=== PATIENT | female | born 1990 | race Caucasian/White ===

== ENCOUNTER 2025-09-01 08:28 | Outpatient (REF) | payer MEDICAID, SELFPAY ==
--- OUTSIDE RECORDS SUMMARY | 2025-08-30 14:00 | XMS_ITS | Encounter Summary ---
Author Organization [employer] Address [address] [place] [address] [address], [place] [address] Care Team Providers Care Industrial Engineering Technologist Name Role Phone Dejan Lopes CNP Primary Care Provider [phone] Reason for Referral * Imaging (Routine) - Closed Specialty Diagnoses / Procedures Referred By Jeffrey burris Referred To Contact Radiology Diagnoses Encounter for screening mammogram for breast cancer Procedures BI Mammogram Screening Tomosynthesis Bilateral Dejan Lopes CNP [address] [place] [address] Phone: tel: fax: [address] Phone: tel: fax: Referral ID Status Reason Start Date Expiration Date Visits Re quested Visits Authorized [id number] Closed 08/30/2025 08/30/2026 1 1 * Consultation (Routine) - Authorized Specialty Diagnoses / Procedures Referred By Jeffrey burris Referred To Contact Hand Surgery Diagnoses Chronic hand pain, right Dejan Lopes CNP [address] [place] [address] Phone: tel: fax: [facility] [address] [place] [address] Phone: tel: Referral ID Status Reason Start Date Expiration Date Visits Requested Visits Authorized [id number] Authorized Specialty Services Required 08/30/2026 1 1 * Consultation (Routine) - Closed Specialty Diagnoses / Procedures Referred By Jeffrey burris Referred To Contact Physical Therapy Diagnoses Chronic pain of both knees Dejan Lopes CNP [address] [place] [address] Phone: tel: fax: [facility] [address] [place], [place] Phone: tel: fax: Referral ID Status Reason Start Date Expiration Date V isits Requested Visits Authorized [id number] Closed Specialty Services Required 08/30/2025 08/30/2026 1 1 Encounter Details Date Type Department Care Team ([facility] st Contact Info) Description 08/30/2025 2:00 PM EST Office Visit [facility] [address] [place] [address] Dejan Lopes CNP [address] [place] [address] Encounter to establish care (Primary Dx); Chronic pain of both knees; Chronic hand pain, right; Encounter for screening mammogram for breast cancer Social History Tobacco Use Types Packs/Day Years Used Date Smoking Tobacco: Never Passive Smoke Exposure: Never Smokeless Tobacco: Never Alcohol Use Standard Drinks/Week Comments Never 0 (1 standard drink = 0.6 oz pur e alcohol) Depression Answer Date Recorded Patient Health Questionnaire-9 Score 0 08/30/2025 Patient Health Questionnaire-9 Score 0 08/30/2025 Last PHQ-9: Questionnaire Data Not on file 1 10/30/2024 Housing Stability Answer Date Recorded What is your housing situation today? I have cordell hernandez 08/30/[address] you li ve. Do you have problems with any of the following? None of the above 08/30/2025 Food Insecurity Answer Date Recorded Within the past 12 months, y ou worried that your food would run out before you got money to buy more: Never True 08/30/2025 Within the past 12 months,th e food you bought just didn't last and you didn't have enough money to get more: Never True 09/2025 Transportation Answer Date Recorded In the past 12 months, has l ack of transportation kept you from medical appts, meetings, work or from getting things needed for daily living? No 08/30/2025 Utilities Answer Date Recorded In the past 12 months, has t he electric, gas, oil or water company threatened to shut off services in your home? No 08/30/2025 Depression Answer Date Recorded Patient Health Questionnaire-2 Score 0 08/30/2025 Internet Access Answer Date Recorded Internet Access Q1 Yes 08/30/2025 Internet Access Q2 Not on file 08/30/2025 Comments No Intention Date Recorded No desire to become (finding) 1 10/30/2024 Sex and Gender Information Value Date Recorded Sex Assigned at Female 08/30/2025 2:10 PM EST Legal Sex Female 2:11 AM EDT Gender Identity Female 08/30/2025 2:10 PM EST Sexual Orientation Straight 08/30/2025 2: 10 PM EST documented as of this encounter Last Filed Vital Signs Vital Sign Reading Time Taken Comments Blood Pressure 112/72 08/30/2025 2:18 PM EST Pulse 76 08/30/2025 2:18 PM EST Temperature 36.7 C (98.1 F) 08/30/2025 2:18 PM EST Respiratory Rate 16 08/30/2025 2:18 PM EST Oxygen Saturation 99% 08/30/2025 2:18 PM EST Inhaled Oxygen Concentration - - Weight 57.2 kg (126 lb) 08/30/2025 2:18 PM EST Height 162.6 cm (5' 4 ) 08/30/2025 2:18 PM EST Body Mass Index 21.63 08/30/2025 2:18 PM EST documented in this encounter Functional Status * Over the past 2 weeks, how often have you been bothered by any of the following problems? Question Answer Date of Assessment Author Patient Health Questionnaire -2 Score 0 08/30/2025 2:50 PM EST Almita Murray MA * Little interest or pleasure in doing things Answer Date of Assessment Author Not at all 08/30/2025 2:50 PM EST [facility] Zoie cartagena [place] * Feeling down, depressed, or hopeless Answer Date of Assessment Author Not at all 08/30/2025 2:50 PM EST [employer] Zoie cartagena [place] * Trouble falling or staying asleep, or sleeping too much Answer Date of Assessment Author Not at all 08/30/2025 2:50 PM EST [employer] Zoie cartagena [place] * Feeling tired or having little energy Answer Date of Assessment Author Not at all 08/30/2025 2:50 PM EST [employer] Zoie cartagena [place] * Poor appetite or overeating Answer Date of Assessment Author Not at all 08/30/2025 2:50 PM EST [employer] Zoie cartagena [place] * Feeling bad about yourself - or that you are a failure or have let yourself or your family down Answer Date of Assessment Author Not at all 08/30/2025 2:50 PM EST [employer] Zoie cartagena [place] * Trouble concentrating on things, such as reading the newspaper or watching television Answer Date of Assessment Author Not at all 08/30/2025 2:50 PM EST [employer] Zoie cartagena [place] * Moving or speaking so slowly that other people could have noticed? Or the opposite - being so fidgety or restless that you have been moving around a lot more than usual. Answer Date of Assessment Author Not at all 08/30/2025 2:50 PM EST [employer] Zoie cartagena [place] * Thoughts that you would be better off or hurting yourself in some way Answer Date of Assessment Author Not at all 08/30/2025 2:50 PM EST [employer] Zoie cartagena [place] * Patient Health Questionnaire-9 Score Answer Date of Assessment Author 0 08/30/2025 2:50 PM EST [employer] Zoie cartagena [place] * Over the last 2 weeks, how often have you been bothered by any of the following problems? Question Answer Date of Assessment Author Feeling nervous, anxious, or on edge 0 08/30/2025 2:50 PM EST Almita Murray MA Not being able to stop or control worrying 0 08/30/2025 2:50 PM EST Soledad-Almita Benson [place] Worrying too much about different things 0 08/30/2025 2:50 PM EST Almita Murray MA Trouble relaxing 0 08/30/2025 2:50 PM EST Zoie Monet MA Being so restless that it is hard to sit still 0 08/30/2025 2:50 PM EST Almita Murray MA Becoming easily annoyed or irritable 0 08/30/2025 2:50 PM EST Almita Murray MA Feeling afraid as if somethi ng awful might happen 0 08/30/2025 2:50 PM EST Almita Murray MA RADHA-7 Total Score 0 08/30/2025 2:50 PM EST Zoie Murray MA documented as of this encounter Progress Notes * Dejan Lopes CNP - 08/30/2025 2:00 PM EST Subjective: Kay Holt is a 34 y.o. female who presents to the office for a physical exam. Previous PCP unknown. Current concerns Chronic knee pain-bilateral, denies history of injury. Pain is exacerbated by going up stairs, reports crepitus. Denies weakness, reports some instability. Trying to gain weight. Reports she eats consistent balanced meals throughout the day. Chronic bilateral hand pain, reports tightness of joints in all fingers of both hands but predominantly right hand. She is right handed. 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 Problem List[1] Surgical History[2] Family History[3] Social History Living situation: Has 4 children, has secure housing Employment/Education:critical care registered nurse Diet/exercise: no Substance use: denies all substance use Sexual activity: yes Contraception: condoms Mental health: Patient Health Questionnaire-9 Score: 0 (08/30/2025 2:50 PM) Patient Health Questionnaire-2 Score: 0 (08/30/2025 2:50 PM) Thoughts that you would be better off or hurting yourself in some way: Not at all (08/30/2025 2:50 PM) RADHA-7 Total Score: 0 (08/30/2025 2:50 PM) Patient's last menstrual period was 08/15/2025. Regular occurring each month Allergies[4] Review of Systems Vitals: 08/30/25 1418 BP: 112/72 BP Location: Left arm Patient Position: Sitting BP Cuff Size: Adult Pulse: 76 Resp: 16 Temp: 98.1 ??F (36.7 ??C) TempSrc: Oral SpO2: 99% Weight: 126 lb (57.2 kg) Height: 5' 4 (1.626 m) Physical Exam Constitutional: Appearance: Normal appearance. She is normal weight. Cardiovascular: Rate and Rhythm: Normal rate and regular rhythm. Pulses: Normal pulses. Heart sounds: Normal heart sounds. No murmur heard. No friction rub. No gallop. Pulmonary: Effort: Pulmonary effort is normal. No respiratory distress. Breath sounds: Normal breath sounds. No wheezing or rales. Musculoskeletal: Right knee: No swelling, deformity, effusion, erythema or ecchymosis. Normal range of motion. No tenderness. No LCL laxity, MCL laxity, ACL laxity or PCL laxity. Left knee: No swelling, deformity, effusion, erythema or ecchymosis. Normal range of motion. No tenderness. No LCL laxity, MCL laxity, ACL laxity or PCL laxity. Neurological: General: No focal deficit present. Mental Status: She is alert and oriented to person, place, and time. Psychiatric: Mood and Affect: Mood normal. Behavior: Behavior normal. Thought Content: Thought content normal. Judgment: Judgment normal. Assessment & Plan Encounter to establish care 1. Anticipatory guidance discussed. Specific topics reviewed: drugs, ETOH, and tobacco, importance of regular dental care, importance of regular exercise, importance of varied diet, minimize junk food, and sex; STD and prevention as appropriate. 2. Age appropriate screenings discussed. We did discuss early breast cancer screening due to directfamily history of breast cancer diagnosed at age 45. Pt would like early screening. 3. Pt declines due vaccinations. Routine Screening and Health Maintenance ASCVD risk: 34 y.o. female no known CVD risk factors. Lab Review: orders written for new lab studies as appropriate; see orders Routine Cancer Screening Breast CA: family history of breast cancer, will initiate screening Cervical CA: Last pap 12/2022 NILM, HPV Neg, next due 12/2027 Colon CA: not yet indicated Lung CA: Orders: HIV-1/2 Antigen and Antibodies, Fourth Generation, with Reflexes; Future Hepatitis C Antibody with Reflex to HCV, RNA, Quantitative, Real-Time PCR; Future Lipid Panel, Standard; Future CBC auto differential; Future Basic Metabolic Panel; Future T-SPOT??.TB; Future TSH W/Reflex to FT4; Future Chronic pain of both knees Exam was benign, no acute abnormalities Based on exam likely PFS Advised conservative treatment with activity modification, heat, ice, analgesics and she was referred to PT today. 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 Discussed conservative treatment and possibly OT, pt not interested in OT as she has completed in the past with mild relief. She may benefit from corticosteroid injections, will refer to hand specialist. Orders: Referral to Hand Surgery; Future Encounter for screening mammogram for breast cancer Orders: BI Mammogram Screening Tomosynthesis Bilateral; Future Current Medications[5] Immunization History Administered Date(s) Administered Hep B, Unspecified 11/21/2018, 02/06/2019, 06/01/2019 Influenza Injectable Quadrivalant Preservative Free IIV4 MDCK 11/21/2016 Influenza injectable quadrivalent preservative free 07/28/2017 MMR 06/15/2019 Rho(D)-IG IM 04/30/2021 Tdap 07/28/2017, 04/07/2019, 02/10/2021 Follow up in about 1 year (around 08/30/2026) for annual physical . [1] Patient Active Problem List Diagnosis Family history of autism Family history of malignant neoplasm of breast in first degree relative Hearing loss History of sexually transmitted infection Normal labor Rhesus isoimmunization affecting Encounter for delivery without indication Screening for genetic disease carrier status Supervision of with history of in utero procedure during previous , third trimester Uterine scar from previous surgery affecting Vaginal delivery Varicose veins of leg with pain [2] History reviewed. No pertinent surgical history. [3] Family History Problem Relation Name Age of Onset Breast cancer Sister 45 [4] Not on File [5] No current outpatient medications on file. No current facility-administered medications for this visit. documented in this encounter Plan of Treatment Scheduled Orders Name Type Priority Associated Diagnoses Orde r Schedule HIV-1/2 Antigen and Antibodies, Fourth Generation, with Reflexes Lab Routine Encounter to establish care Expected: 08/30/2025 (Approximate), Expires: 08/30/2026 Hepatitis C Antibody with Reflex to HCV, RNA, Quantitative, Real-Time PCR Lab Routine Encounter to establish care Expected: 08/30/2025, Expires: 08/30/2026 Lipid Panel, Standard Lab Routine Encounter to establish care Expected: 08/30/2025 (Approximate), Expires: 08/30/2026 CBC auto differential Lab Routine Encounter to establish care Expected: 08/30/2025 (Approximate), Expires: 08/30/2026 Basic Metabolic Panel Lab Routine Encounter to establish care Expected: 08/30/2025 (Approximate), Expires: 08/30/2026 T-SPOT .TB Lab Routine Encounter to establish care Expected: 08/30/2025 (Approximate), Expires: 08/30/2026 BI Mammogram Screening Tomosynthesis Bilateral Imaging Routine Encounter for screening mammogram for breast cancer Expected: 08/30/2025, Expires: 10/30/2026 TSH W/Reflex to FT4 Lab Routine Encounter to establish care Expected: 08/30/2025 (Approximate), Expires: 08/30/2026 Scheduled Referrals Name Type Priority Associated Diagnoses Orde r Schedule Referral to Physical Therapy Outpatient Referral Routine Chronic pain of both knees Expected: 08/30/2025 (Approximate), Expires: 08/30/2026 Referral to Hand Surgery Outpatient Referral Routine Chronic hand pain, right Expected: 08/30/2025 (Approximate), Expires: 08/30/2026 documented as of this encounter Visit Diagnoses Diagnosis Encounter to establish care- Primary Chronic pain of both knees Chronic hand pain, right Encounter for screening mammogram for breast cancer documented in this encounter Additional Health Concerns Assessment Noted Time PHQ-9 Depression Total Score: 0 08/30/20 25 2:50 PM EST documented as of this encounter Care Teams Industrial Engineering Technologist Relationship Specialty Start Date End Date Dejan Lopes CNP [address] [place] [id number] PCP - General Family Medicine 08/30/25 documented as of this encounter
--- OUTSIDE RECORDS SUMMARY | 2025-09-01 08:46 | XMS_ITS | Encounter Summary ---
Author Organization [employer] Address [address] [facility] [address] [place] [address] Care Team Providers Care Patternmaker Apprentice Metal Name Role Phone Unavailable Primary Care Provider Unavailabl e Reason for Visit * Reason Onset Date Comments chart prep 08/28/2025 Encounter Details Date Type Department Care Team (Late st Contact Info) Description 08/28/2025 Telephone [facility] [address] [place] [address] Zoie Murray [place] chart prep Social History Tobacco Use Types Packs/Day Years Used Date Smoking Tobacco: Never Assessed Comments Unknown Sex and Gender Information Value Date Recorded Sex Assigned at Female 08/30/2025 2:10 PM EST Legal Sex Female 2:11 AM EDT Gender Identity Female 08/30/2025 2:10 PM EST Sexual Orientation Straight 08/30/2025 2: 10 PM EST documented as of this encounter Miscellaneous Notes * Telephone Encounter - Zoie Murray MA - 08/28/2025 10:24 AM EST Chart Prep Labs: not applicable Images: not applicable Referrals: not applicable Vaccines due: Covid, Flu, and HPV Screenings: pap smear, STI screening, and LMP Overdue care gaps: SBIRT, SDOH, PHQ-9, RADHA-7, Oral health screening, Disability screen, and Tobacco documented in this encounter Plan of Treatment Not on file documented as of this encounter Visit Diagnoses Not on filedocumented in this encounter
--- OUTSIDE RECORDS SUMMARY | 2025-09-01 08:46 | XMS_ITS | Clinical Summary ---
Author Organization [employer] Address [address] [facility] [address] [place] [address] Care Team Providers Care Gas Plant Repairer Name Role Phone Dejan Lopes CNP Primary Care Provider [phone] Medications No known medications Active Problems Problem Noted Date Diagnosed Date Hearing loss 08/28/2025 Varicose veins of leg with pain 08/28/2025 Family history of malignant neoplasm of breast in first degree relative 09/29/2021 Screening for genetic disease carrier status 09/2021 Normal labor 04/29/2021 Vaginal delivery 04/29/2021 Supervision of wit h history of in utero procedure during previous , third trimester 02/10/2021 Rhesus isoimmunization affecting 10/07 Uterine scar from previous surgery affecting pre gnancy 02/06/2019 Family history of autism 11/14/2018 History of sexually transmitted infection 2018 Encounter for delivery without indicati on 10/21/2018 Encounters Date Type Department Care Team Description 08/30/2025 2:00 PM EST Office Visit [facility] [address] [place] [address] Dejan Lopes CNP Encounter to establish care (Primary Dx); Chronic pain of both knees; Chronic hand pain, right; Encounter for screening mammogram for breast cancer 08/30/2025 Travel 08/28/2025 Telephone [facility] [address] [place] [address] Zoie Murray MA chart prep 08/22/2025 Patient Outreach [address] [phone] Flo Rodriguez MD Pre-visit Planning (Pre visit planning LVM ) 07/14/2025 Telephone [facility] [address] [place] [address] Flo Rodriguez MD Appointment Request from Last 3 Months Immunizations Immunization Administration Dates Next Due Hep B, Unspecified 06/01/2019,02/06/2019, 019 Influenza Injectable Quadriv alant Preservative Free IIV4 MDCK 11/21/2016 Influenza injectable quadriv alent preservative free 07/28/2017 MMR 06/15/2019 Rho(D)-IG IM 04/30/2021 Tdap 02/10/2021,04/07/2019,07/28/2017 Family History Medical History Relation Name Comments Breast cancer Sister Relation Name Status Comments Sister Social History Tobacco Use Types Packs/Day Years [...] Orientation Straight 08/30/2025 2: 10 PM EST Last Filed Vital Signs Vital Sign Reading [...] Mass Index 21.63 08/30/2025 2:18 PM EST Plan of Treatment Health Maintenance Due Date Last Done Comments HIV Screening 1991 Hepatitis C Screening 2009 Pap Smear 2012 HPV/Cotest 2021 Influenza Vaccine (#1) 2026 7, 11/21/2016 Postponed from 06/19/2025 (Patient Refused) Alcohol/Substance Use Screening 08/30/2026 08/30/2025 COVID-19 Vaccine (1 - 2024-2 6 season) 2026 Postponed from 06/19 (Patient Refused) Depression Screening 08/30/2026 08/30/2025, 08/30/2025 Disability Screening 08/30/2026 08/30/2025 Family Planning (PISQ) 08/30/2026 08/30/2025 HPV Vaccines (1 - 3-dose series) 08/30/2026 Postponed from 10/07 (Patient Refused) SDOH Screening 08/30/2026 08/30/2025 Tobacco Screening 08/30/2026 08/30/2025 Cervical Cancer Screening 12/20/2027 Po stponed from 2021 (Other Medical Reasons) DTaP/Tdap/Td Vaccines (4 - T d or Tdap) 02/10/2031 02/10/2021, 04/07/2019, 07/28/2017 Zoster Vaccines (1 of 2) 2041 RSV Patients and Patients Aged 60 years or older (1 - 1-dose 75+ series) 2066 Hepatitis B Vaccines Completed 06/01/2019, 02/06/2019, 11/21/2018 HIB Vaccines Aged Out No longer eligi ble based on patient's age to complete this topic Hepatitis A Vaccines Aged Out No long er eligible based on patient's age to complete this topic IPV Vaccines Aged Out No longer eligi ble based on patient's age to complete this topic Meningococcal B Vaccine Aged Out No l onger eligible based on patient's age to complete this topic Meningococcal Vaccine Aged Out No osiel junaid eligible based on patient's age to complete this topic Pneumococcal Vaccine: Pediatrics (0 to 5 Years) and At-Risk Patients (6 to 49) Years Aged Out No longer eligible b ased on patient's age to complete this topic RSV under 20 months Aged Out No longe r eligible based on patient's age to complete this topic Rotavirus Vaccines Aged Out No longer eligible based on patient's age to complete this topic Insurance [facility] C3 Care Teams Gas Plant Repairer Relationship Specialty Start Date End Date Dejan Lopes CNP [address] [place] [address] PCP - General Family Medicine 08/30/25
--- OUTSIDE RECORDS SUMMARY | 2025-09-01 08:46 | XMS_ITS | Patient Health Record ---
Author Organization [facility] Address [address] [place] [address] Care Team Providers Care Loom Changer Name Role Phone KEVIN CARR Unavailable [phone] Allergies Allergen (clinical drug ingredient) Drug/Non Drug Allergy documented on EMR Reaction Allergy Type Onset Date Status seasonal (uncoded) Unknown Allergy A ctive Reason For Referral No Information Medications Medication SIG (Take, Route, Frequency, Duration) Notes Start Date End Date Status diazePAM 5 MG 1-2 tablet as needed Orally Once a day; Duration: 1 days Active Tylenol with Codeine #3 300-30 MG 1-2 tablet as needed Orally every 6 hrs; Duration: 2 days Active Acetaminophen-Codeine #3 300-30 MG 1 tablet as needed Orally every 6 hrs; Duration: 1 dose 08/13/2020 Active diazePAM 5 MG 1-2 tablet as needed Orally Once a day; Duration: 1 days 08/13/2020 Active Social History Alcohol Screen (Audit-C) Question Answer Notes Did you have a drink containing alcohol in the p ast year? No Points 0 Interpretation Negative Tobacco use other than smoking: Question Answer Notes Are you an other tobacco user? No Problems Problem Type SNOMED Code ICD Code Onset Dates Problem Status W/U Status Risk Notes Problem Chronic maxillary sinusitis (68961114) Chronic maxillary sinusitis (J32.0) Active confirmed Problem Chronic frontal sinusitis (30475097) Chronic frontal sinusitis (J32.1) Active confirmed Problem Chronic sphenoidal sinusitis (79446769) Chronic sphenoidal sinusitis (J32.3) Active confirmed Plan Of Treatment No Information Insurance Providers Payer Name Payer Address Payer Phone Subscriber Number Group Number Insured Name Patient Relationship to Insured Coverage Start Date Coverage End Date [facility] PAMELA ALLEN [id number] [place] [phone] [id number] Kay Bernstein Self - patient is the insured Medical (General) History Medical History History ICD Code asthma
--- OUTSIDE RECORDS SUMMARY | 2025-09-01 08:46 | XMS_ITS | Clinical Summary ---
Author Organization [facility] Address [address] [place] [address] Care Team Providers Care Hairpiece Stylist Name Role Phone Nathaly Rodriguez CNM Primary Care Provider [phone] Source Comments PLEASE NOTE, if this patient is a minor, it may be UNLAWFUL to discuss sensitive information that is contained in these records (such as FAMILY PLANNING, MENTAL HEALTH or SUBSTANCE ABUSE) with the minor patient's parent or other person without the patient's specific authorization.EMILY Active Problems Problem Noted Date Diagnosed Date Screening for genetic disease carrier status 09/2021 Family history of malignant neoplasm of breast in first degree relative 09/29/2021 Supervision of wit h history of in utero procedure during previous , third trimester ([facility]) 02/10/2021 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 Uterine scar from previous s urgery affecting ([facility]) 02/06/2019 History of sexually transmitted infection 2018 Family history of autism 11/14/2018 Encounter for deliv nickie without indication ([facility]) 10/21/2018 Encounters Date Type Department Care Team Description 07/04/2025 Dental Interim Note [facility] Release of Information [address] [place] [phone] Default, Cbw Provider from Last 3 Months Immunizations Immunization Administration Dates Next Due Hep B, Unspecified 06/01/2019,02/06/2019, 019 TDAP 02/10/2021,04/07/2019 Social History Tobacco Use Types Packs/Day Years Used Date Smoking Tobacco: Never Assessed Comments Unknown Sex and Gender Information Value Date Recorded Sex Assigned at Not on file Legal Sex Female 1:46 PM PDT Gender Identity Female 07/27/2025 9:20 AM PDT Sexual Orientation Straight 07/27/2025 9: 20 AM PDT Plan of Treatment Health Maintenance Due Date Last Done Comments Anxiety Screening 1991 HPV Screening (self-collect) 1991 HPV Screening 1991 Hepatitis C Screening 1991 Pap + HPV 1991 Tobacco Screening 1991 HIV Screening 2006 Relationship Safety Screening/Counseling 2006 Hypertension Screening (#1) 2009 Imm-HPV (1 - 3-dose SCDM series) 2018 Cervical Cancer Screening 07/24/2022 Pap Smear 07/24/2022 07/24/2019 Dental BW 08/13/2024 08/11/2023, 10/23/2019 Dental Examination 08/13/2024 08/11/2023, 10/23/2019 Dental Prophy 08/23/2024 08/21/2023, 11/20/2019 Alcohol and Drug Screen 10/19/2024 Depression Annual Screen 10/19/2024 Dental FMX/Pano 10/25/2024 10/23/2019 [id number] (2 - season) 2025 021 Imm-Influenza (#1) 2025 Imm-DTaP/Tdap/Td (3 - Td or Tdap) 02/10/2031 021, 04/07/2019 Imm-Hepatitis B Discontinued 06/01/2019, 042 10/2018, 11/21/2018 Cervical Ablation/Cold-Knife Conization Discontinued Cervical Cryotherapy Discontinued Colposcopy Discontinued Excision/Leep Discontinued HPV Genotyping Discontinued Vaginal Pap Discontinued Vulvoscopy Discontinued Procedures Procedure Name Priority Date/Time Associated Diagnosis Comments PROPHYLAXIS - ADULT Routine 08/21/2023 3 :00 AM EDT BITEWINGS - FOUR RADIOGRAPHIC IMAGES Routine 08/11/2023 3:00 AM EDT COMP ORAL EVALUATION - NEW/ESTABLISHED PATIENT Routine 08/11/2023 3:00 AM EDT INTRAORAL - COMP SERIES OF RADIOGRAPHIC IMAGES Routine 10/23/2019 3:00 AM EST PAP RFLX HPV MRNA ASCUS,RFX 16/18/45 W/CT/GC Routine 07/24/2019 11:59 AM EDT from Last 3 Months or Most Recently Relevant to Health Maintenance Results * PAP RFLX HPV MRNA ASCUS,RFX 16/18/45 W/CT/GC (07/24/2019 11:59 AM EDT) CHLAMYDIA TRACHOMATIS RNA, TMA, UROGENITAL Not Detected 07/24/2019 11:59 AM EDT DATA CONVERSION INTERPRETATION/ RESULT NILM 07/24/2019 11:59 AM EDT DATA CONVERSION Comment:See lab report for a ssociated comment(s) N. GONORRHOEAE TMA, RECTAL Not Detected 07/24/2019 11:59 AM EDT DATA CONVERSION Comment:See lab report for a ssociated comment(s) 07/24/2019 11:5 9 AM EDT us Cbw Provider Default [facility] Final Resul t DATA CONVERSION from Last 3 Months or Most Recently Relevant to Health Maintenance Care Teams Hairpiece Stylist Relationship Specialty Start Date End Date Nathaly Rodriguez CNM [address] [place] [phone] PCP - General 07/27/25
--- OUTSIDE RECORDS SUMMARY | 2025-09-01 08:46 | XMS_ITS | Encounter Summary ---
Author Organization [employer] Address [address] [place] [address] Care Team Providers Care Air Drier Machine Operator Name Role Phone Dejan Lopes CNP Primary Care Provider [phone] Encounter Details Date Type Department Care Team (Latest Contact Info) Description 08/30/2025 Travel Social History Tobacco Use Types Packs/Day Years [...] Q2 Not on file 08/30/2025 Comments No Sex and Gender Information Value Date Recorded Sex Assigned at Female 08/30/2025 2:10 PM EST Legal Sex Female 2:11 AM EDT Gender Identity Female 08/30/2025 2:10 PM EST Sexual Orientation Straight 08/30/2025 2: 10 PM EST documented as of this encounter Functional Status * Over the past 2 weeks, how often have you been bothered by any of the following problems? Question Answer Date of Assessment Author Patient Health Questionnaire -2 Score 0 08/30/2025 2:50 PM EST Rowe-ColonAlmita MA * Little interest or pleasure in doing things Answer Date of Assessment Author Not at all 08/30/2025 2:50 PM EST Rowe-Co Zoie cartagena MA * Feeling down, depressed, [...] Assessment Author 0 08/30/2025 2:50 PM EST Soledad-Co Zoie cartagena MA * Over the last 2 weeks, how often have you been bothered by any of the following problems? Question Answer Date of Assessment Author Feeling nervous, anxious, or on edge 0 08/30/2025 2:50 PM EST Almita Murray MA Not being able to stop or control worrying 0 08/30/2025 2:50 PM EST Almita Murray MA Worrying too much about different things 0 08/30/2025 2:50 PM EST Almita Murray MA Trouble relaxing 0 08/30/2025 2:50 PM EST D ramsayZoie Rodríguez MA Being so restless that it is hard to sit still 0 08/30/2025 2:50 PM EST Almita Murray MA Becoming easily annoyed or irritable 0 08/30/2025 2:50 PM EST Soledad-Almita Benson MA Feeling afraid as if somethi ng awful might happen 0 08/30/2025 2:50 PM EST Almita Murray MA RADHA-7 Total Score 0 08/30/2025 2:50 PM EST Zoie Murray MA documented as of this encounter Plan of Treatment Not on file documented as of this encounter Visit Diagnoses Not on filedocumented in this encounter Additional Health Concerns Assessment Noted Time PHQ-9 Depression Total Score: 0 08/30/20 2:50 PM EST documented as of this encounter Care Teams Air Drier Machine Operator Relationship Specialty Start Date End Date Dejan Lopes CNP [address] [place] [address] [place] [id number] PCP - General Family Medicine 08/30/25 documented as of this encounter
--- OUTSIDE RECORDS SUMMARY | 2025-09-01 08:46 | XMS_ITS | Patient Health Record ---
Author Organization [facility] [employer] Address [address] [place] [address] [address] [place] [address] Support Name Relationship Address Phone Analy Holt Emergency Contact Unknown Kay Holt Guarantor Unknown REASON FOR REFERRAL No Information MEDICATIONS Medication SIG (Take, Route, Fr equency, Duration) Notes Start Date End Date Status Fiber Select Gummies - Orally Active IMMUNIZATIONS Vaccine Route Administration Date Status Comme nts HPV 9 IM Intramuscular 12/09/2016 Administered SOCIAL HISTORY Tobacco Use: Social History Observation Description Date Details (start date - stop date) Never Smoker NA - NA Sex Assigned At : Social History Observation Description Sex Assigned At Unknown Tobacco Use/Smoking Question Answer Notes Are you a nonsmoker Alcohol Screen (Audit-C) Question Answer Notes Did you have a drink containing alcohol in the p ast year? No Points 0 Interpretation Negative Sexual History Question Answer Notes Had sex in the past 12 months (vaginal, oral, or anal)? Yes with Men only Use protection? Yes How often? Most of the time Prevention strategies discussed: Condoms Have you ever had a Sexually transmitted disease ? 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
--- OUTSIDE RECORDS SUMMARY | 2025-09-01 08:46 | XMS_ITS | Encounter Summary ---
Author Organization [facility] Address [address] [place] [address] Care Team Providers Care Automotive Power Electronics Engineer Name Role Phone Nathaly Rodriguez CNM Primary Care Provider [phone] Reason for Visit * Reason Comments Office Visit: Converted Data Conversion Encounter Details Date Type Department Care Team ([facility] Contact Info) Description 07/04/2025 Dental Interim Note [facility] Release of Information [address] [place] [phone] Default, Cbw Provider [place] Social History Tobacco Use Types Packs/Day Years Used Date Smoking Tobacco: Never Assessed Comments Unknown Sex and Gender Information Value Date Recorded Sex Assigned at Not on file Legal Sex Female 1:46 PM PDT Gender Identity Female 07/27/2025 9:20 AM PDT Sexual Orientation Straight 07/27/2025 9: 20 AM PDT documented as of this encounter Plan of Treatment Scheduled Orders Name Type Priority Associated Diagnoses Order Schedule 2 O 2 O RESIN-BASED COMPOSITE - ONE SURFACE POSTERIOR Dental Procedures Routine 1 Occurrence s starting 06/20/2025 15 LO 15 LO RESIN-BASED COMPOSITE - TWO SURFACES POSTERIOR Dental Procedures Routine 1 Occurrenc es starting 06/20/2025 31 B 31 B RESIN-BASED COMPOSITE - ONE SURFACE POSTERIOR Dental Procedures Routine 1 Occurrence s starting 06/20/2025 documented as of this encounter Procedures Procedure Name Priority Date/Time Associated Diagnosis Comments MISSED APPOINTMENT Routine 05/30/2024 3: 00 AM EDT CANCELLED APPOINTMENT Routine 08/24/2023 3:00 AM EST ORAL HYGIENE INSTRUCTIONS Routine 2022 3:00 AM EDT PROPHYLAXIS - ADULT Routine 08/21/2023 3 :00 AM EDT MISSED APPOINTMENT Routine 08/13/2023 3: 00 AM EDT CARIES RISK ASSESSMENT & DOC FINDING HIGH RISK Routine 08/11/2023 3:00 AM EDT BITEWINGS - FOUR RADIOGRAPHIC IMAGES Routine 08/11/2023 3:00 AM EDT INTRAORAL - PERIAPICAL EACH ADD RADIOGRAPH IMAGE Routine 08/11/2023 3:00 AM EDT INTRAORAL - PERIAPICAL FIRST RADIOGRAPHIC IMAGE Routine 08/11/2023 3:00 AM EDT COMP ORAL EVALUATION - NEW/ESTABLISHED PATIENT Routine 08/11/2023 3:00 AM EDT 3 O RESIN-BASED COMPOSITE - ONE SURFACE POSTERIOR Routine 12/28/2019 3:00 AM EDT 20 O RESIN-BASED COMPOSITE - ONE SURFACE POSTERIOR Routine 12/28/2019 3:00 AM EDT 20 ENDODONTIC THERAPY PREMOLAR TOOTH Routine 12/18/2019 3:00 AM EST CANCELLED APPOINTMENT Routine 12/10/2019 3:00 AM EST ORAL HYGIENE INSTRUCTIONS Routine 2019 3:00 AM EST PROPHYLAXIS - ADULT Routine 11/20/2019 3 :00 AM EST CARIES RISK ASSESSMENT & DOC FINDING MOD RISK Routine 10/23/2019 3:00 AM EST 30 FLACO RESIN-BASED COMPOSITE - TWO SURFACES POSTERIOR Routine 10/23/2019 3:00 AM EST 3 LO RESIN-BASED COMPOSITE - TWO SURFACES POSTERIOR Routine 10/23/2019 3:00 AM EST 13 O RESIN-BASED COMPOSITE - ONE SURFACE POSTERIOR Routine 10/23/2019 3:00 AM EST 5 O RESIN-BASED COMPOSITE - ONE SURFACE POSTERIOR Routine 10/23/2019 3:00 AM EST 4 O RESIN-BASED COMPOSITE - ONE SURFACE POSTERIOR Routine 10/23/2019 3:00 AM EST 31 O RESIN-BASED COMPOSITE - ONE SURFACE POSTERIOR Routine 10/23/2019 3:00 AM EST 12 O RESIN-BASED COMPOSITE - ONE SURFACE POSTERIOR Routine 10/23/2019 3:00 AM EST 7 L RESIN-BASED COMPOSITE ONE SURFACE ANTERIOR Routine 10/23/2019 3:00 AM EST 10 L RESIN-BASED COMPOSITE ONE SURFACE ANTERIOR Routine 10/23/2019 3:00 AM EST INTRAORAL - COMP SERIES OF RADIOGRAPHIC IMAGES Routine 10/23/2019 3:00 AM EST COMP ORAL EVALUATION - NEW/ESTABLISHED PATIENT Routine 10/23/2019 3:00 AM EST documented in this encounter Visit Diagnoses Not on filedocumented in this encounter Care Teams Automotive Power Electronics Engineer Relationship Specialty Start Date End Date Nathaly Rodriguez CNM [address] [place] [phone] PCP - General 07/27/25 documented as of this encounter
[2025-09-01 14:15] LABS: MANUAL DIFF FLAG NO
[2025-09-01 14:20] LABS: Hematocrit 34.0 % (37.0-47.0); Hemoglobin 10.3 g/dl (12.0-16.0); Imm Gran Abs Auto 0.01 X10*3/uL (0.00-0.03); Imm Gran Pct Auto 0.1 % (0.0-0.4); Lymphocytes Absolute Auto 2.2 X10*3/uL (1.2-4.9); Mean Corpuscular HGB Conc 30.3 g/dl (31.0-35.0); Mean Corpuscular Hemoglobin 23.5 pg (27.0-33.0); Mean Corpuscular Volume 77.6 fL (80.0-98.0); NRBC Abs Auto 0.000 X10*3/uL (0.0-0.012); NRBC Pct Auto 0.0 /100WBC (0.0-0.2); Platelet Count 360 X10*3/uL (160-400); Red Blood Count 4.38 X10*6/uL (4.20-5.50); White Blood Count 7.2 X10*3/uL (4.8-10.8)
[2025-09-01 14:39] LABS: Anion Gap 10 (12-20); Blood Urea Nitrogen 15 mg/dL (9-16); Calcium 8.7 mg/dL (8.4-10.2); Carbon Dioxide 23 mmol/L (22-29); Chloride 110 mmol/L (96-108); Cholesterol 135 mg/dL (<200); Estimated Glomerular Filt Rate > 60; HDL Cholesterol 52 mg/dL (>40); Potassium 3.8 mmol/L (3.3-5.1); Sodium 139 mmol/L (135-145); Triglycerides 46 mg/dL (<150)
[2025-09-02 08:32] LABS: HIV Num 1 0.06 S/CO (0.00-0.99); ~HepC Num1 0.15 S/CO (0.00-0.79); ~Hepatitis C Antibody Nonreactive (Nonreactive)
[2025-09-04 08:49] LABS: TS Negative Control Passed; TS Panel A 0; TS Panel B 0; TS Positive Control Passed; TSpotTB Negative (Negative)
== END 2025-09-01 08:29 | disposition home or self-care (01) ==
LOC: HO.CHCLDS 08:28
DX: Z11.4 Encounter for screening for human immunodeficiency virus [HIV] (principal); Z11.1 Encounter for screening for respiratory tuberculosis; Z11.59 Encounter for screening for other viral diseases; Z76.89 Persons encountering health services in other specified circumstances
CPT/HCPCS: 36415; 80048; 80061; 84443; 85025; 86481; 86803; 87389